=== PATIENT | female | born 1955 | race Caucasian/White ===

== ENCOUNTER 2017-10-03 01:59 | Observation (INO) | payer OTHER ==
[~2017-10-03] VITALS: Ht 162.6 cm; Wt 81.6 kg
[~2017-10-03 01:59] MED LIST: ATORVASTATIN CA20 M1 PO; MELOXICAM15 M1 PO; PANTOPRAZOLE SO40 M1 PO; PRESERVISION A1 EAC1 PO; VITAMIN D31000 UNI1 PO; ZOFRAN ODT4 M1 SL
--- NOTE | 2017-10-03 14:47 | Operative Report ---
Operative/Inv Procedure Report Surgery Date: 10/03/17 Name of Procedure: Robotic assisted laparoscopic hiatal hernia repair with mesh and Devang fundoplication Pre-Operative Diagnosis: Hiatal hernia with obstruction GERD with esophagitis Post-Operative Diagnosis: Same same Estimated Blood Loss: scant Surgeon/Pest Control Worker: Jose VERGARA,Markus Campuzano/Alexis ROJAS Anesthesia: general endotracheal tube Implants: [place] bio a Operative/Procedure Note Note: After informed consent patient brought to the operating room laid supine. General anesthesia was obtained and her abdomen was prepped and draped. Pneumoperitoneum was achieved through a left upper quadrant varies needle. A 8 mm port was placed to the left of the periumbilical region. The abdomen was explored. There was some pneumatosis of the mesentery of the small bowel in the left upper quadrant. The varies needle was removed. There is no bowel injury. 2, 8 mm ports were placed in the left lower abdomen parallel plane of the diaphragm under vision. A 12 mm port was placed in the right midabdomen under direct vision a camera. A 5 mm Serena retractor was placed through the epigastric region under direct vision a camera. The liver was retracted and fixed to the bed. She was placed in reverse Trendelenburg, 15. Robot was docked and targeted. I then broke scrub and went to the console. There is a very large mixed paraesophageal hernia containing the entire fundus and most of the body of the stomach and most of the omentum. Began dissection on the right [place]. The peritoneum overlying it was taken down with scissor cautery. We came anteriorly and got into a plane around the hernia sac. We circumferentially dissected the hernia sac and delivered the sac inferiorly. Then dissected posterior and created a plane behind the esophagus. Angie drain was then placed and tied to itself and aid in dissection in the GE junction. The esophagus was then dissected from the mediastinum using scissor cautery. The vagus nerves were identified and preserved. Once the esophagus was mobilized as far as we can go, we turned our attention down to the GE junction. It was difficult to see where it was so the sac was excised with vessel sealer. The GE junction was well below the diaphragm. The short gastric vessels were then taken down with the vessel sealer. At this point the diaphragmatic crura were closed with a running 0 V lock suture, nonabsorbable. At the apex of her closure a 0 Ethibond suture was placed in a [id number] fashion for additional strength. The fundus was then placed posterior and shoeshine maneuver performed. The fundus was attached to itself anteriorly with a 0 V lock suture, nonabsorbable. This aid in placement of the fundus then allowed 2 more sutures to be placed inferiorly using interrupted 2-0 Vicryl incorporating the anterior portion of the esophagus to keep the fundoplication fixated. A piece of [place] bio a mesh was then placed in the cavity and positioned over the diaphragmatic closure. All needles and [place] drains were then removed. The sac was removed and passed off the field. Liver retractor was removed and ports delivered. The fascia in the 12 mm site was closed with 0 Vicryl suture. Skin incisions closed with 4-0 Vicryl. Steri-Strips and sterile dressing applied. Sponge and needle counts are correct CC: Mahin VERGARA,Carol; Shade VERGARA,Nilay
--- NOTE | 2017-10-03 14:49 | Admission Core Measures ---
Acute Coronary Syndrome (CM) ACS Core Measures Acute Coronary Syndrome Diagnosis No Congestive Heart Failure (NEW) CHF Core Measures Congestive Heart Failure Diagnosis No Cerebrovascular Accident CVA Core Measures CVA/TIA Diagnosis No Venous Thromboembolism VTE Core Amalia (View Protocol) VTE Risk Factors Surgery No Mechanical VTE Prophylaxis d/t N/A MechProphylax Ordered No VTE Pharm Prophylaxis d/t NA PharmProphylax ordered Problem List As ranked by this Provider includes Assessment & Plan 1. GERD with esophagitis 2. Hiatal hernia with obstruction but no gangrene HOME MEDS Home Med List Atorvastatin Calcium 20 MG TABLET 1 TAB PO DAILY CHOLESTEROL (Reported) Cholecalciferol (Vitamin D3) (Vitamin D3) (Unknown Strength) CAPSULE (Unknown Dose) PO DAILY SUPPLEMENT (Reported) Meloxicam 15 MG TABLET 1 TAB PO DAILY PAIN/INFLAMMATION (Reported) Pantoprazole Sodium 40 MG TABLET.DR 1 TAB PO BID GI (Reported) Vit C/E/Zn/Coppr/Lutein/Zeaxan (Preservision Areds 2 Softgel) 250-200-40 CAPSULE 1 CAP PO BID SUPPLEMENT (Reported)
--- NOTE | 2017-10-03 15:23 | Patient Discharge Instructions ---
Discharge Instructions General Discharge Information You were seen/treated for: Hiatal hernia You had these procedures: Robotic assisted laparoscopic hiatal hernia repair with mesh and Devang fundoplication on 10/03/17 Watch for these problems: Increased pain, fever > 101.3, chills, redness, swelling or drainage from incisions Other wound care: Keep incisions clean and dry Ok to remove dressings in 48 hours Diet Continue normal diet: No Recommended Diet: Fundoplication diet Activity Full Activity/No Limits: No Activity Self Limited: Yes Pounds, do NOT lift more than: 10 (x 4 weeks) Other activity limits: No heavy lifting or strenous activity Acute Coronary Syndrome Inclusion Criteria At DC or during hospital stay patient has or had the following: ACS DIAGNOSIS No Discharge Core Measures Meds if any: Prescribed or Continued at Discharge Meds if any: NOT Prescribed or Continued at Discharge Congestive Heart Failure Inclusion Criteria At DC or during hospital stay patient has or had the following: CHF DIAGNOSIS No Discharge Core Measures Meds if any: Prescribed or Continued at Discharge Meds if any: NOT Prescribed or Continued at Discharge Cerebrovascular accident Inclusion Criteria At DC or during hospital stay patient has or had the following: CVA/TIA Diagnosis No Discharge Core Measures Meds if any: Prescribed or Continued at Discharge Meds if any: NOT Prescribed or Continued at Discharge Venous thromboembolism Inclusion Criteria VTE Diagnosis No VTE Type NONE VTE Confirmed by (Test) NONE Discharge Core Measures - Per Current guidelines, there needs to be overlap - treatment for the first 5 days of Warfarin therapy. - If discharged on Warfarin prior to 5 days of - overlap therapy, the patient will need to be - assessed for post discharge needs including - *Post discharge parental anticoagulation - *Warfarin and/or parental anticoagulation education - *Follow up date to check INR post discharge At least 5 days overlap therapy as Inpatient No Meds if any: Prescribed or Continued at Discharge Note: Overlap Therapy is Warfarin and Anticoagulant Meds if any: NOT Prescribed or Continued at Discharge
[2017-10-03 17:14] VITALS: BP 110/80
--- NOTE | 2017-10-03 18:29 | PN- General Surgery ---
Subjective Subjective: Post op check: Patient complaining of discomfort across chest that is moving down to epigastric region. Has been present since surgery. No shortness of breath. No nausea or vomitting. Has sub q emphysema but feels facial swelling is improving. Objective Vital Signs and I&Os Vital Signs Date Time Temp Pulse Resp B/P B/P Pulse O2 O2 Flow FiO2 Mean Ox Delivery Rate 10/03 1714 97.9 73 18 110/80 91 Room Air Intake & Output 10/03 1600 10/03 0800 10/03 0000 10/02 1600 10/02 0800 10/02 0000 Intake Total Output Total Balance Patient 180 lb Weight Physical Exam: General: Alert and oriented x3, no acute distress HEENT: Sub q emphysema palpable across chest, shoulders and face Cards: RRR, s1s2 Pulm: CTA bilaterally, non-labored respiratory effort Abd: Softly distended, jarrett-incisional tenderness Extremiteis: Neurovascularly inact. Bilateral calves soft and non-tender Assessment/Plan Assessment/Plan This is a 61 year old female, POD 0 s/p robotic assited theo/hh repair -offirmev atc -prn oxycodone, morphine -resume meloxicam on pod 1 if clinically stable -monitor cp, cxr if worsens, trops negative -OOB encouraged -fundoplication diet Will discuss poc with Dr. Garcia Core Measures Venous Thromboembolism VTE Risk Factors Surgery No Mechanical VTE Prophylaxis d/t N/A MechProphylax Ordered No VTE Pharm Prophylaxis d/t NA PharmProphylax ordered
[2017-10-03 19:27] VITALS: BP 110/82
[2017-10-03 20:55] VITALS: BP 126/88
[2017-10-04 01:11] VITALS: BP 128/76
[2017-10-04 04:44] VITALS: BP 124/86
[2017-10-04 07:56] LABS: ABSOLUTE BASOPHIL COUNT 0 /CUMM (0.0-0.2); ABSOLUTE EOSINOPHIL COUNT 0 /CUMM (0.0-0.7); ABSOLUTE LYMPH COUNT 0.8 /CUMM (1.2-3.4); ABSOLUTE MONOCYTE COUNT 0.9 /CUMM (0.10-0.60)
--- NOTE | 2017-10-04 08:09 | PN- General Surgery ---
See Addendum Subjective Subjective: Patient continues to complain of chest discomfort. States she feels she is unable to take a deep breath, limited by pain and immobility. Is aware of facial edema related to subcutaneous emphysema, feels that it is improving. She is able to open eyes wider and denies blurred vision. She denies nausea or vomitting. She denies belching or hiccuping. She has been oob. She has been voiding without difficulty. Objective Vital Signs and I&Os Vital Signs Date Time Temp Pulse Resp B/P B/P Pulse O2 O2 Flow FiO2 Mean Ox Delivery Rate 10/04 0832 98.1 77 18 140/90 94 Room Air 10/04 0444 98.0 75 18 124/86 94 Room Air 10/04 0111 98.2 80 18 128/76 94 Room Air 10/03 2055 98.2 82 18 126/88 92 Room Air 10/03 1927 98.4 80 20 110/82 91 Room Air 10/03 1714 97.9 73 18 110/80 91 Room Air Intake & Output 10/04 1600 10/04 0800 10/04 0000 10/03 1600 10/03 0800 10/03 0000 Intake Total 120 870 Output Total 700 300 400 Balance -700 -180 470 Intake, IV 470 Intake, Oral 120 400 Number 0 Bowel Movements Output, Urine 700 300 400 Patient 180 lb Weight Physical Exam: General: Anxious, crying, oriented x3 Cardiac: RRR, s1s2 Pulm: CTA bilaterally, air exchange ausculted in all parsons, no respiratory distress, non-labored respiratory effort HEENT: jarrett-orbital subcutaneous emphysema less compared with yesterday Abdomen: soft, jarrett-incisional tenderness, non-distended, +bs Extremities: Moves all extremities, distal sensation grossly intact. Bilateral calves soft and non-tender Assessment/Plan Assessment/Plan This is a 61 year old female, POD 1, s/p robot assisted theo fundoplication with HH repair, extensive sub cutaneous emphysema post operatively -Chest xray, PA and lateral -Fundoplication diet -OOB encouraged -Continue current pain regimen -Hep sub q for dvt ppx, alps Will discuss plan of care with Dr. Garcia Core Measures Venous Thromboembolism VTE Risk Factors Surgery No Mechanical VTE Prophylaxis d/t N/A MechProphylax Ordered No VTE Pharm Prophylaxis d/t NA PharmProphylax ordered
[2017-10-04 08:24] LABS: ABSOLUTE GRANULOCYTE CT 10.2 /CUMM (1.4-6.5); BASOPHIL % 0.1 % (0.0-2.0); EOSINOPHIL % 0.1 % (0-5); HEMATOCRIT 33.5 % (37-47); MEAN CORPUSCULAR HGB CONC 33.3 G/DL (33.0-37.0); MEAN CORPUSCULAR VOLUME 84.4 FL (81.0-99.0); PLATELET COUNT 201 /CUMM (130-400); RBC DISTRIBUTION WIDTH 16.4 % (11.5-14.5); RED BLOOD CELL CT 3.97 /CUMM (4.20-5.40)
[2017-10-04 08:32] VITALS: BP 140/90
--- NOTE | 2017-10-04 09:35 | RADIOLOGY REPORT ---
EXAMINATION: XR CHEST CLINICAL INFORMATION: Shortness of breath. History of Murali fundoplication. No subcutaneous emphysema. COMPARISON: None TECHNIQUE: 2 views of the chest were obtained. Examination limited secondary to extensive subcutaneous emphysema. FINDINGS: Cardiac silhouette is nondilated. There is widening of the superior mediastinum, potentially related to recent surgery or patient angulation. The lungs are adequately aerated. Lung detail is obscured secondary to extensive subcutaneous emphysema. No gross lobar consolidation or pleural effusion. Degenerative changes of the spine. IMPRESSION: Extensive subcutaneous emphysema is present which limits fine detail. There is widening of the superior mediastinum which is nonspecific but potentially related to recent surgery or patient angulation. Clinical correlation is recommended. Further evaluation may be obtained with CT if indicated.
[2017-10-04 13:00] VITALS: BP 126/80
[2017-10-04] MEDS ORDERED: OXYCODONE HCL5 M1 PO (13:23)
== END 2017-10-04 14:51 ==
LOC: STS 01:59 → SDA 07:00 → STS 07:00 → EDSTATUS 07:00 → PACUH 14:52 → ENRESERV 15:51 → ENTRNSPT 16:57 → EDTRNSPTSTS 17:09 → EDTRNSPT 17:11 → 2NB 17:16 → CMPTRNSPT 17:26 → ENPENDDIS 10-04 13:30 → ENTRNSPT 10-04 14:35 → EDTRNSPTSTS 10-04 14:48 → EDTRNSPT 10-04 14:48 → 2NB 10-04 14:51 → CMPTRNSPT 10-04 14:58
PROVIDERS: Physician Assistant Surgical
DX: K44.0 Diaphragmatic hernia with obstruction, without gangrene (principal); K21.0 Gastro-esophageal reflux disease with esophagitis; E78.2 Mixed hyperlipidemia; E03.9 Hypothyroidism, unspecified
CPT/HCPCS: 6040; 36592; 71046; 82436; 93005; 93010; 96372; 96374; 96376; C1781; G0378; J0131; J0690; J1644; J3490; J7042

== ENCOUNTER 2017-12-10 04:30 | Inpatient (IN) | payer OTHER ==
[~2017-12-10] VITALS: Ht 162 cm; Wt 81.0 kg
[~2017-12-10 04:30] MED LIST changes: +OXYCODONE HCL5 M1 PO
[2017-12-10] MEDS ORDERED: MIRALAX17 G1 PO (08:27)
[2017-12-10] MEDS ORDERED: DILAUDID2 M1 PO (08:27)
[2017-12-10] MEDS ORDERED: ASPIRIN EC81 M1 PO (08:27)
[2017-12-10] MEDS ORDERED: COLACE100 M1 PO (08:27)
[2017-12-10] MEDS ORDERED: PROTONIX20 M1 PO (08:27)
[2017-12-10] MEDS ORDERED: INDOMETHACIN25 M1 PO (08:27)
--- NOTE | 2017-12-10 17:07 | Operative Report ---
Operative/Inv Procedure Report Surgery Date: 12/10/17 Name of Procedure: 1. Redo robotic assisted laparoscopic hiatal hernia repair with mesh and Devang fundoplication 2. Robotic assisted laparoscopic Araseli gastroplasty Pre-Operative Diagnosis: Recurrent hiatal hernia with GERD Post-Operative Diagnosis: Same Estimated Blood Loss: less than 50ml Surgeon/Seasonal Clerk: Jose VERGARA,Markus Campuzano/Martina ROJAS Anesthesia: general endotracheal tube Implants: [place] bio a Operative Indication: 62-year-old woman who is 2 months post robotic assisted laparoscopic hiatal hernia repair with mesh and Devang fundoplication. She had early recurrence of GERD and postprandial chest pain. Workup shows recurrent hiatal hernia with "slipped Devang". Operative/Procedure Note Note: After consent patient brought to the operating room laid supine. General anesthesia was obtained and her abdomen was prepped and draped. Pneumoperitoneum was achieved through the left upper quadrant Veress needle at [place]'s point. An 8 mm port was then placed through the pre-existing scar in the left midabdomen. The abdomen was explored. An 8 mm port was placed in the left paramedian area. A 12 mm port was placed in the right upper quadrant. And a 12 mm port was placed in the left lateral position. Finally through a 5 mm incision in the epigastrium, Serena retractor was placed and liver edge elevated. The robot was then docked and targeted. Instruments were placed under direct vision. I then broke scrub and went to the console. The abdomen was explored. There was evidence of recurrent hiatal hernia with fundoplication down over the body of the stomach. There were adhesions to the liver. We began by dissecting free the hiatus using scissor cautery. This was quite tedious, taking approximately 3 hours of dissection. We can went back and forth around the crura to delineate the stomach and peel it away from the previously placed [place] bio a mesh that was incorporated into the fascial/diaphragmatic tissues. Eventually were able to get around the hiatus and [place] drain was placed around the GE junction to aid in retraction. The fundoplication was taken down by cutting the permanent sutures that were seen and freeing it up from the stomach. Eventually were able to push it back behind and reestablish the normal position of the stomach. We then circumferentially dissected the hiatus with scissor cautery. This too was quite tedious as care was taken to avoid injury to the esophagus. Eventually able to get into the mediastinum and identify the esophagus. It was freed up safely as possible. After completing as much dissection as possible in the mediastinum, it appeared that the GE junction was right at the diaphragm. I then proceeded to perform Araseli gastroplasty. A 44 Romanian bougie was placed under direct vision. A wedge of fundus was then taken at the angle of Hiss using 3 loads of a green robotic stapler cartridge. The result was a lengthening of a "janene-esophagus" of approximately 2 cm. There was closure of the diaphragm from previous surgery, but it was not quite closed enough. It was then closed further in a posterior fashion using running 0 V lock permanent suture. The fundus was then passed posterior and shoeshine maneuver performed. A 360 degree wrap was then performed with interrupted 2-0 Ethibond sutures, 2 of which incorporated the anterior portion of the esophagus to keep it centered. The bougie was removed. A piece of pork [place] bio a mesh was then placed posterior to the fundoplication. Once we have for the place of the mesh we then extracted the sutures and gastrectomy specimen. The renal cavity was irrigated with normal saline. Liver edge was then allowed to fall down ports extracted and robot undocked. The fascia at the 2 12 mm port sites were closed with interrupted 0 Vicryl suture. Skin incisions closed with 4-0 Vicryl. Steri-Strips and sterile dressing applied. Sponge needle counts are correct CC: Mahin VERGARA,Carol
[2017-12-10 18:30] VITALS: BP 128/62
--- NOTE | 2017-12-10 20:38 | Admission Core Measures ---
Acute Coronary Syndrome (CM) ACS Core Measures Acute Coronary Syndrome Diagnosis No Congestive Heart Failure (NEW) CHF Core Measures Congestive Heart Failure Diagnosis No Cerebrovascular Accident CVA Core Measures CVA/TIA Diagnosis No Venous Thromboembolism VTE Core Amalia (View Protocol) VTE Risk Factors Surgery No Mechanical VTE Prophylaxis d/t N/A MechProphylax Ordered No VTE Pharm Prophylaxis d/t NA PharmProphylax ordered Problem List As ranked by this Provider includes Assessment & Plan 1. Hiatal hernia with GERD HOME MEDS Home Med List Atorvastatin Calcium 20 MG TABLET 1 TAB PO DAILY CHOLESTEROL (Reported) Meloxicam 15 MG TABLET 1 TAB PO DAILY PAIN/INFLAMMATION (Reported) Pantoprazole Sodium (Protonix) 20 MG TABLET.DR 1 TAB PO DAILY GI PROTECTION
--- NOTE | 2017-12-10 20:40 | PN- General Surgery ---
Subjective Subjective: POC Feeling well, no nausea, no vomiting. no cp/sob, some shoulder pain. +oob to bathroom, +void. thirsty. abd pain controlled Objective Vital Signs and I&Os see emr Physical Exam: gen- nad card- s1s2 pulm- no audible wheeze abd- incisions dressed, cdi. ttp upper abd. obese, soft. ect- calves soft nt bl, alps on Assessment/Plan Assessment/Plan A- POD0 sp redo robotic HH repair/theo/paty gastroplasty, for recurrent hiatal hernia with gerd, stable P- NPO IVF IV meds ancef x23h postop hep so, alps, oob, ambulate UGI in am Core Measures Venous Thromboembolism VTE Risk Factors Surgery No Mechanical VTE Prophylaxis d/t N/A MechProphylax Ordered No VTE Pharm Prophylaxis d/t NA PharmProphylax ordered
[2017-12-10 22:21] VITALS: BP 136/80
[2017-12-11 06:55] VITALS: BP 100/70
[2017-12-11 10:43] LABS: ABSOLUTE BASOPHIL COUNT 0 /CUMM (0.0-0.2); ABSOLUTE EOSINOPHIL COUNT 0.4 /CUMM (0.0-0.7); ABSOLUTE GRANULOCYTE CT 5.2 /CUMM (1.4-6.5); ABSOLUTE LYMPH COUNT 0.7 /CUMM (1.2-3.4); ABSOLUTE MONOCYTE COUNT 0.5 /CUMM (0.10-0.60); BASOPHIL % 0.4 % (0.0-2.0); EOSINOPHIL % 5.1 % (0-5); GRANULOCYTE % 75.9 % (42.2-75.2); MEAN CORPUSCULAR HGB 29.5 PG (27.0-31.0); MEAN CORPUSCULAR HGB CONC 33.8 G/DL (33.0-37.0); MEAN CORPUSCULAR VOLUME 87.4 FL (81.0-99.0); MEAN PLATELET VOLUME 7.5 FL (7.4-10.4); PLATELET COUNT 208 /CUMM (130-400); RBC DISTRIBUTION WIDTH 15.7 % (11.5-14.5); RED BLOOD CELL CT 3.43 /CUMM (4.20-5.40); WHITE BLOOD CELL COUNT 6.9 /CUMM (4.8-10.8)
--- NOTE | 2017-12-11 12:37 | RADIOLOGY REPORT ---
EXAMINATION: FL UPPER GI SERIES CLINICAL INFORMATION: Status post redo Devang fundoplication COMPARISON: None TECHNIQUE: A single contrast upper GI series with fluoroscopy and spot imaging was performed. The patient ingested dilute Gastrografin without difficulty and was evaluated in the upright positions. FINDINGS: Normal swallowing reflex. There is some esophageal distention present, with dysmotility. The Gastrografin demonstrates normal passage through the esophagus into the stomach. No discrete extraluminal contrast or leakage of contrast is identified. There is nondistention of the proximal stomach, presumably postsurgical. There is contrast seen extending into the duodenum. FLUOROSCOPY TIME: 1 minute 56 seconds NUMBER OF IMAGES: 122 images IMPRESSION: No extraluminal contrast is identified. Esophageal dysmotility. See details above.
[2017-12-11 13:51] VITALS: BP 108/60
[2017-12-11 22:19] VITALS: BP 120/80
[2017-12-12 05:48] VITALS: BP 110/72
--- NOTE | 2017-12-12 07:18 | PN- Student ---
Sybil Wang 12/12/17 0710: Subjective Subjective: No acute overnight events. Pt had an episode of diarrhea this morning, passing flatus. She states that she is in pain but it is tolerable. She is experiencing no dysphagia, reflux and is tolerating her diet at this time. IV fluids are still running, I encouraged her to drink more fluids PO. Pt has been oob and ambulating. Denies any cp. Does have some difficutly with deep breaths d/t post- op pain. Objective Objective: Gen: O&Ax3, laying in bed, nad Lungs: CTA Heart: RRR, s1 and s2 normal Abdomen: soft, tender on left side near incision sites, hypoactive bs, non- distended, bandaids in place over incisions- all are c/d/i LE: calves soft, nontender Skin: warm/dry Assessment/Plan Assessment: This is a 62 yo female s/p redo robotic HH repair/theo/paty gastroplasty, for recurrent hiatal hernia with gerd, this morning she is stable. Plan: -If tolerating diet and getting good PO intake, DC IV fluids later today -UGI done yesterday am showed some esophageal distention and dysmotility, but no extraluminal contrast was identified -Encourage oob,ambulation -Pain control as ordered -No [place], voiding w/o difficulty -periop abx given -Bogdan ballard for dvt ppx Markus Garcia MD 12/12/17 [id number]: Attending MD Review Statement Attending Sign Off Other Findings: as above. tolerating diet. d/c ivf. shoulder pain from positioning in OR. plan for discharge today.
[2017-12-12] MEDS ORDERED: MIRALAX119 GM PO (07:32)
[2017-12-12] MEDS ORDERED: COLACE100 M1 PO (07:32)
[2017-12-12] MEDS ORDERED: DILAUDID2 M1 PO (07:32)
--- NOTE | 2017-12-12 07:38 | Patient Discharge Instructions ---
Discharge Instructions General Discharge Information You were seen/treated for: Repair of Devang Fundoplication You had these procedures: Repair of Devang Fundoplication and Gastroplasty Watch for these problems: Redness, swelling or unusual drainage from incisions, increased pain, nausea, vomiting, excessive diarrhea, or no bowel movements, or any other problems, questions or concerns. Do not soak the wound: Yes Daily wet to dry dressings: No No bath, but you may shower: Yes Other wound care: Remove bandages tomorrow, white strips will fall off on their own Diet Continue normal diet: No Recommended Diet: Post Devang Diet Additional DIET Information: Nothing too hot or cold, small frequent meals, no carbonation Activity Full Activity/No Limits: No Activity Self Limited: Yes Pounds, do NOT lift more than: 10 (x 2 weeks) Activity Limited to: Weight bear as tolerated Acute Coronary Syndrome Inclusion Criteria At DC or during hospital stay patient has or had the following: ACS DIAGNOSIS No Discharge Core Measures Meds if any: Prescribed or Continued at Discharge Meds if any: NOT Prescribed or Continued at Discharge Congestive Heart Failure Inclusion Criteria At DC or during hospital stay patient has or had the following: CHF DIAGNOSIS No Discharge Core Measures Meds if any: Prescribed or Continued at Discharge Meds if any: NOT Prescribed or Continued at Discharge Cerebrovascular accident Inclusion Criteria At DC or during hospital stay patient has or had the following: CVA/TIA Diagnosis No Discharge Core Measures Meds if any: Prescribed or Continued at Discharge Meds if any: NOT Prescribed or Continued at Discharge Venous thromboembolism Inclusion Criteria VTE Diagnosis No VTE Type NONE VTE Confirmed by (Test) NONE Discharge Core Measures - Per Current guidelines, there needs to be overlap - treatment for the first 5 days of Warfarin therapy. - If discharged on Warfarin prior to 5 days of - overlap therapy, the patient will need to be - assessed for post discharge needs including - *Post discharge parental anticoagulation - *Warfarin and/or parental anticoagulation education - *Follow up date to check INR post discharge At least 5 days overlap therapy as Inpatient No Meds if any: Prescribed or Continued at Discharge Note: Overlap Therapy is Warfarin and Anticoagulant Meds if any: NOT Prescribed or Continued at Discharge
--- NOTE | 2017-12-12 07:45 | PN- General Surgery ---
See Addendum Subjective Subjective: Patient doing fairly well this am. Reports left shoulder and incisional pain. Had some diarrhea yesterday and this am. No n/v, tolerating post theo stage 1 diet. OOB and voiding without difficulty. Pain fairly well controlled, has not tried PO pain medication. No other issues or complaints. No other concerns per nursing. Objective Vital Signs and I&Os Vital Signs Date Time Temp Pulse Resp B/P B/P Pulse O2 O2 Flow FiO2 Mean Ox Delivery Rate 12/12 0548 98.3 52 20 110/72 92 Room Air 12/11 2219 98.6 68 20 120/80 93 12/11 1600 Room Air 12/11 1351 97.8 65 20 108/60 92 Room Air 12/11 0800 Room Air Intake & Output 12/12 0812/12 0000 12/11 1600 12/11 0800 12/11 0000 12/10 1600 Intake Total 030 805 8168 600 500 Output Total 600 350 Balance 225 822 9255 600 150 Intake, IV 800 600 800 600 500 Intake, Oral 880 0 0 Number 0 Bowel Movements Output, Urine 600 350 Patient 179 lb Weight Physical Exam: General: A, A, NAD Abdomen: Obese, soft, ND, appropriately ttp, bandages c/d/i with steri strips in place Extremities: No clubbing, cyanosis or edema Current Medications: Current Medications Sig/Jacinto Start time Last Medication Dose Route Stop Time Status Admin Acetaminophen 1,000 MG Q6P PRN 12/10 1715 AC 12/12 IV 0106 Cefazolin Sodium 2 GM IQ8 12/11 0000 DC 12/11 N/A 1 UNIT IV 12/11 0829 0759 Dextrose/Sodium 1,000 ML .Q10H 12/10 1715 AC 12/12 Chloride IV 0057 Heparin Sodium 5,000 UNIT Q8 12/10 2200 AC 12/12 (Porcine) SC 0543 Hydromorphone HCl 2 MG Q4P PRN 12/12 0730 AC 12/12 PO 0740 Morphine Sulfate 2 MG Q3P PRN 12/10 1745 AC 12/10 IV 2247 Morphine Sulfate 4 MG Q3P PRN 12/10 1745 AC 12/11 IV 2008 Ondansetron HCl 4 MG Q6P PRN 12/10 1800 AC 12/10 IV 2247 Patient Medication 1 ED ONE ONE 12/11 1415 DC 12/11 Teaching ED 12/11 1416 1419 Results Last 48 Hours of Labs: Laboratory Tests 12/11 0837 Chemistry Sodium (137 - 145 mmol/L) 137 Potassium (3.5 - 5.1 mmol/L) 3.9 Chloride (98 - 107 mmol/L) 106 Carbon Dioxide (22 - 30 mmol/L) 27 Anion Gap (5 - 16) 3 L BUN (7 - 17 mg/dL) 14 Creatinine (0.5 - 1.0 mg/dL) 0.6 Estimated GFR (>60 ml/min) > 60 BUN/Creatinine Ratio (7 - 25 %) 23.3 Hematology CBC w Diff NO MAN DIFF REQ WBC (4.8 - 10.8 /CUMM) 6.9 RBC (4.20 - 5.40 /CUMM) 3.43 L Hgb (12.0 - 16.0 G/DL) 10.1 L Hct (37 - 47 %) 30.0 L MCV (81.0 - 99.0 FL) 87.4 MCH (27.0 - 31.0 PG) 29.5 MCHC (33.0 - 37.0 G/DL) 33.8 RDW (11.5 - 14.5 %) 15.7 H Plt Count (130 - 400 /CUMM) 208 MPV (7.4 - 10.4 FL) 7.5 Gran % (42.2 - 75.2 %) 75.9 H Lymphocytes % (20.5 - 51.1 %) 10.7 L Monocytes % (1.7 - 9.3 %) 7.9 Eosinophils % (0 - 5 %) 5.1 H Basophils % (0.0 - 2.0 %) 0.4 Absolute Granulocytes (1.4 - 6.5 /CUMM) 5.2 Absolute Lymphocytes (1.2 - 3.4 /CUMM) 0.7 L Absolute Monocytes (0.10 - 0.60 /CUMM) 0.5 Absolute Eosinophils (0.0 - 0.7 /CUMM) 0.4 Absolute Basophils (0.0 - 0.2 /CUMM) 0 Assessment/Plan Assessment/Plan This is a 62 yo female who is POD #2 s/p Robotic Repair of Theo Fundoplication and Gastroplasty. Plan for today is to convert to PO pain medication. EKG for Left shoulder pain. Ambulate/IS, GI/DVT Px. Continue post theo stg 1 diet. Nutrition education prior to admission on home diet. Likely DC home later today. Will d/w Dr. Garcia. Problem List: 1. Hiatal hernia with obstruction but no gangrene 2. Hiatal hernia with GERD 3. S/P Theo fundoplication (without gastrostomy tube) procedure Core Measures Venous Thromboembolism VTE Risk Factors Surgery No Mechanical VTE Prophylaxis d/t N/A MechProphylax Ordered No VTE Pharm Prophylaxis d/t NA PharmProphylax ordered
--- NOTE | 2017-12-12 07:55 | Surg Short-stay <48hrs Dis Sum ---
Visit Information Visit Dates Admission Date: 12/10/17 Discharge Date: 12/12/17 Surgical Short Stay DC Summary Admission Diagnosis: Recurrent hiatal hernia Final Diagnosis: same Procedure(s): Robotic redo hiatal hernia repair with mesh, Devang fundoplication and Araseli gastroplasty Summary/Significant Findings: none Condition at Discharge: good Discharge Disposition: home or self care Discharge instructions provided to patient/family: Yes Post discharge follow-up plan: 2 weeks. Fundoplication diet progression. Copies to: Mahin VERGARA,Carol
== END 2017-12-12 13:38 | DRG 328 ==
LOC: SDA 04:30 → EDSTATUS 07:00 → STS 07:00 → ENRESERV 17:27 → ENTRNSPT 18:03 → 2NA 18:18 → CMPTRNSPT 18:36 → ENTRNSPT 12-12 13:10 → EDTRNSPTSTS 12-12 13:27 → EDTRNSPT 12-12 13:27 → CMPTRNSPT 12-12 13:33 → 2NA 12-12 13:38
PROVIDERS: Physician Assistant Surgical
PROC: 0DQ44ZZ Repair Esophagogastric Junction, Percutaneous Endoscopic Approach (ICD-10-PCS; principal; 2017-12-10)
PROC: 0DNU4ZZ Release Omentum, Percutaneous Endoscopic Approach (ICD-10-PCS; principal; 2017-12-10)
PROC: 8E0W4CZ Robotic Assisted Procedure of Trunk Region, Percutaneous Endoscopic Approach (ICD-10-PCS; principal; 2017-12-10)
PROC: 0WUF4JZ Supplement Abdominal Wall with Synthetic Substitute, Percutaneous Endoscopic Approach (ICD-10-PCS; principal; 2017-12-10)
DX: K44.0 Diaphragmatic hernia with obstruction, without gangrene (principal); K21.9 Gastro-esophageal reflux disease without esophagitis; E78.5 Hyperlipidemia, unspecified; Z96.643 Presence of artificial hip joint, bilateral
CPT/HCPCS: 2NASP; 36592; 74240; 82436; 87086; 93005; 93010; C1781; J0131; J0690; J1644; J1885; J2405; J3490; J7042